=== PATIENT | female | born 1945 | race Caucasian/White ===

== ENCOUNTER → 2017-02-07 | Day surgery (SDC) | payer MEDICARE, OTHER ==
[~2017-02-07] VITALS: Ht 162.5 cm; Wt 62.6 kg
[~2017-02-07] MED LIST: COREG25 MG PO; K-Dur 20MEQ20 MEQ PO; NORVASC10 MG PO; TENORMIN50 MG PO
--- NOTE | ~2017-02-07 | O ---
[place], [place] OPERATIVE NOTE NAME: CELY GOLDEN UNIT #: [id number] ROOM: DOCTOR: NENO ANDEROSN MD BIRTHDATE: [birth year] DOS: 02/07/2017 PREOPERATIVE DIAGNOSIS: Cataract, left eye. POSTOPERATIVE DIAGNOSIS: Cataract, left eye. OPERATION: Extracapsular cataract extraction by phacoemulsification with posterior chamber intraocular lens implantation, left eye. ANESTHESIA: Monitored standby. OPERATIVE FINDINGS AND PROCEDURE: 2% Xylocaine topical anesthetic gel was applied to the eye in the preop area. The patient was taken to the operating room and prepped and draped in the standard fashion for sterile intraocular surgery. A time out procedure was performed verifying correct patient, correct site and corrects lens with Page Anderson M.D. The operating microscope was swung into position and the lid speculum was inserted. Using a Amanda paracentesis blade, a paracentesis was made through clear cornea. Viscoelastic was used to fill the anterior chamber. Using a metal keratome a 2.4 mm self-sealing clear corneal cataract incision was made temporally at the limbus. Using a pre-bent 25 gauge cystotome needle, a standard continuous curvilinear capsulorrhexis was performed. The anterior capsule was removed with forceps. The lens nucleus was hydrodissected and phacoemulsified in the posterior chamber. Cortical material was removed with the irrigation aspiration hand piece and the posterior capsule was then polished with a curet under irrigation. The posterior chamber and capsular bag were filled with viscoelastic. A posterior chamber intraocular lens manufactured by: [employer], Model #[id number], and 23.5 diopters in strength were then inserted into the posterior chamber and within the capsular bag using the lens cartridge and injector system. Viscoelastic was removed using the irrigation aspiration handpiece. The anterior chamber was filled with balanced salt solution through the paracentesis. Both the paracentesis site and cataract incisions were hydrated with BSS and verified to be water-tight and self-sealing. Cefuroxime 1 mg/1 mL was injected into the anterior chamber through the paracentesis site. The incision checked to be water-tight using a Weck-Nona sponge. The integrity of the cataract wound and ocular tension were checked. Lid speculum and drapes were removed. The patient was transferred from the operating room to the recovery room in satisfactory condition. [place], [place] OPERATIVE NOTE NAME: CELY GOLDEN UNIT #: [id number] ROOM: DOCTOR: NENO ANDERSON MD BIRTHDATE: [birth year] NENO ANDERSON MD CM:OPRECORD:OPERATIVE NOTE [id number] NENO ANDERSON MD 02/07/17 1905 interface
[2017-02-07 12:50] VITALS: BP 157/61
[2017-02-07 13:45] VITALS: BP 143/72
[2017-02-07 13:56] VITALS: BP 147/69
[2017-02-07 14:07] VITALS: BP 154/73
== END | disposition home or self-care (01) ==
LOC: SDC 02-06 12:30
DX: H26.9 Unspecified cataract (principal); I10 Essential (primary) hypertension; Z87.891 Personal history of nicotine dependence; Z87.01 Personal history of pneumonia (recurrent); Z80.9 Family history of malignant neoplasm, unspecified

== ENCOUNTER → 2020-04-09 | Outpatient (CLI) | payer MEDICARE, OTHER | END | disposition home or self-care (01) | LOC: COVID19 02:14 | DX: Z01.818 Encounter for other preprocedural examination (principal); Z11.59 Encounter for screening for other viral diseases ==

== ENCOUNTER → 2020-04-14 | Day surgery (SDC) | payer MEDICARE, OTHER ==
[~2020-04-14] VITALS: Ht 162.5 cm; Wt 65.3 kg
[2020-04-14 07:20] VITALS: BP 130/59
[2020-04-14 08:16] VITALS: BP 137/66
[2020-04-14 08:31] VITALS: BP 132/64
[2020-04-14 08:46] VITALS: BP 128/60
== END | disposition home or self-care (01) ==
LOC: SDC 04-09 08:00
DX: H25.811 Combined forms of age-related cataract, right eye (principal); I10 Essential (primary) hypertension; Z98.890 Other specified postprocedural states; Z79.899 Other long term (current) drug therapy; Z88.8 Allergy status to other drugs, medicaments and biological substances

== ENCOUNTER 2025-04-22 09:25 | Emergency (ER) | payer MEDICARE, OTHER ==
[~2025-04-22] VITALS: Wt 56.2 kg
[2025-04-22] MEDS ORDERED: ACETAMINOPHEN 100 ML IV ONE (10:30)
[2025-04-22] MEDS ORDERED: METHOCARBAMOL 750 MG TAB PO ONE (10:35)
[2025-04-22] MEDS ORDERED: METHOCARBAMOL750 M1 PO (13:35)
[2025-04-22] MEDS ORDERED: PREDNISONE50 MG PO (13:35)
== END 2025-04-22 13:43 | disposition home or self-care (01) ==
LOC: ED 09:25
DX: M54.50 Low back pain, unspecified (principal); Z91.048 Other nonmedicinal substance allergy status; Z88.5 Allergy status to narcotic agent; Z79.899 Other long term (current) drug therapy; W22.03XA Walked into furniture, initial encounter; Y93.89 Activity, other specified; Y92.89 Other specified places as the place of occurrence of the external cause; Y99.8 Other external cause status